=== PATIENT | female | born 1990 | race Native Hawaiian/Other Pacific Islander ===

== ENCOUNTER → 2018-08-21 | Outpatient (CLI) | payer OTHER ==
[~2018-08-21] MED LIST: ISOVUE-370 76% 100ML VIAL (Q9967) As Ordered ONE
--- NOTE | 2018-08-21 14:07 | REP ---
HYSTEROSALPINGOGRAM: HISTORY: 10 years of infertility. Hysterosalpingogram was performed in the usual fashion with contrast injected by the referring director public policy. Fluoroscopy time is 0.8 minutes. FINDINGS: A small normally shaped uterine cavity is opacified. The cervical canal is irregular and deviates to the left. There was apparently cervical canal stenosis encountered rendering cervical endometrial intubation difficulty. As a result, there was incomplete opacification of the fallopian tubes. The isthmic segments of the fallopian tubes are opacified on both sides and appear intact. The ampullary segment of the left fallopian tube is opacified and is unremarkable. No peritoneal spillage was documented on either side. IMPRESSION: Cervical canal irregularity/stenosis. Incomplete filling of the of the fallopian tubes bilaterally. Peritoneal spillage was not documented. Electronically Signed by Be English MD 08/21/2018 02:39 P
== END ==
LOC: M RADPRO 12:20
PROVIDERS: ATTEND Obstetrics & Gynecology
DX: N88.2 Stricture and stenosis of cervix uteri (principal); N97.9 Female infertility, unspecified
CPT/HCPCS: 58340; 74740; Q9967

== ENCOUNTER 2018-10-07 06:38 | Day surgery (SDC) | payer OTHER ==
[~2018-10-07] VITALS: Ht 165.1 cm; Wt 80.9 kg
[2018-10-07] MEDS ORDERED: LR 1,000 ML IV ONE (07:00)
[2018-10-07] MEDS ORDERED: DOXYCYCLINE HYCLATE 100 MG in D5W MINI-BAG PLUS 100 ML IV ONE (07:00)
[2018-10-07] MEDS ORDERED: PROPOFOL 200 MG/20 ML VIAL As Ordered ONE ×2 (07:05→07:19)
[2018-10-07 07:07] LABS: HEMATOCRIT 39.2 % (36.0-47.0); HEMOGLOBIN 13.3 g/dl (12.0-15.5)
[2018-10-07] MEDS ORDERED: METOCLOPRAMIDE INJ 10MG/2ML VIAL (J2765) As Ordered ONE (07:19)
[2018-10-07] MEDS ORDERED: ACETAMINOPHEN 1000MG 100ML IV BTL (OFIRMEV) (J0131 PER 10MG) As Ordered ONE (07:19)
[2018-10-07] MEDS ORDERED: KETOROLAC 60 MG/2 ML VIAL (J1885) As Ordered ONE (07:19)
[2018-10-07] MEDS ORDERED: LIDOCAINE 2% INJ 100 MG/5 ML SDV (FOR ANES.) As Ordered ONE (07:19)
[2018-10-07] MEDS ORDERED: ONDANSETRON 4MG/2ML VIAL (J2405) As Ordered ONE (07:19)
[2018-10-07] MEDS ORDERED: dexameTHASONE 4 MG/ML 1ML VIAL (J1100) As Ordered ONE (07:19)
[2018-10-07] MEDS ORDERED: MIDAZOLAM INJ 2 MG/2 ML VIAL (J2250) As Ordered ONE (07:20)
[2018-10-07] MEDS ORDERED: fentaNYL 100 MCG/2 ML INJECTION (J3010) As Ordered ONE ×2 (07:20→09:27)
[2018-10-07 07:27] LABS: HCG, SERUM QUALITATIVE NEGATIVE (NEGATIVE)
[2018-10-07] MEDS ORDERED: ROCURONIUM BROMIDE 50 MG/5 ML VIAL As Ordered ONE (08:09)
[2018-10-07] MEDS ORDERED: METHYLENE BLUE 0.5% (5MG/ML) 10 ML AMP (PROVAYBLUE)(Q9968 PER 1MG) As Ordered ONE (08:34)
[2018-10-07] MEDS ORDERED: BUPIVACAINE HCL 0.25% 30 ML VIAL As Ordered ONE (08:34)
[2018-10-07] MEDS ORDERED: SUGAMMADEX SODIUM 500 MG/5 ML VIAL (BRIDION) As Ordered ONE (10:08)
[2018-10-07] MEDS ORDERED: ONDANSETRON 4MG/2ML VIAL (J2405) IV PRN (11:00)
[2018-10-07] MEDS ORDERED: PERCOCET 5MG/325MG TAB PO PRN (11:00)
[2018-10-07] MEDS ORDERED: fentaNYL 100 MCG/2 ML INJECTION (J3010) IV PRN (11:00)
[2018-10-07 14:00] VITALS: BP 119/71
--- NOTE | 2018-10-07 16:10 | RO ---
DATE OF OPERATION: 10/07/2018 SURGEON: Marilu Morales MD EDUCATION ADVISER: Lakhwinder Durant MD CLINICAL SERVICE: Gynecology INDICATIONS FOR OPERATION: Ebonie is a 28-year-old, (G) 1, who has a history of infertility for approximately 10 years. She also has a history of Chlamydia. In the workup for infertility, we performed an HSG (hysterosalpingogram) and it showed no evidence of tubal patency. Therefore, she was referred for chromopertubation procedure, which she was counseled on in the office and desired to proceed. PREOPERATIVE DIAGNOSIS: Infertility with history of Chlamydia. 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 MATERIAL FORWARDED TO THE LAB: None. DESCRIPTION OF FINDINGS: Laparoscopic findings included a normal appearing uterus, ovaries, appendix, liver edge. Bilateral fallopian tubes appeared clubbed and the left fallopian tube had a small adhesion to the left ovary. Otherwise, there was no evidence of any endometriosis in the pelvis. Posterior cul-de-sac was normal. INFECTION CLASSIFICATION: 2 ESTIMATED BLOOD LOSS: 10 mL. URINE OUTPUT: 700 mL. IV fluids: 1500 mL of lactated Ringer's. OPERATION PERFORMED: Diagnostic laparoscopy with chromopertubation. DESCRIPTION OF OPERATION: After obtaining informed consent, Ebonie was taken to the operating room. General endotracheal anesthesia was established and she was placed into low lithotomy position. Exam was performed. The patient was prepped and draped in usual sterile fashion. She was placed in Trendelenburg position. Lowry catheter was placed. Delaplaine speculum was placed in the vagina and visualization of the cervix was obtained. Anterior lip of the cervix was grasped with a single-tooth tenaculum. Cervix was sequentially dilated using Hanks dilators. Uterus sounded to [address] attempted to [address] a YVONNE manipulator into the uterus, but I had great difficulty. So, we exchanged the YVONNE for an acorn uterine manipulator. The tenaculum was then removed. Site hemostasis observed and the bivalve speculum was removed. The patient was taken out of Trendelenburg position. Notably, she received 100 mg of IV doxycycline for having a history of Chlamydia in the past. A 5 mm incision was made in the infraumbilical fold beneath the subcutaneous tissue after anesthetizing with 0.25% Marcaine. Lower abdominal wall was manually grabbed and lifted up with aid of towel clamps and an Optiview trocar was placed at a 90 degree angle. Laparoscope was advanced through the port and intra-abdominal placement was confirmed. No injury was noted below the point of entry. Continuous low carbon dioxide began to establish a pneumoperitoneum at 15 mmHg pressure. At that point, we started to our abdominal survey and then placed one more trocar in the right lower quadrant. Using transillumination. we made a 5 mm incision after anesthetizing with 0.25% Marcaine and a 5 mm trocar was placed under direct visualization. We then performed more of a thorough pelvic and abdominal survey. Again, liver edge appeared normal as well as appendix. Uterus itself and ovaries were overall normal appearance. However, we could immediately tell that the fallopian tubes appeared clubbed and the left fallopian tube had a small adhesion to the left ovary. The anterior cul-de-sac and posterior cul-de-sac were normal in appearance. At that point, we pushed methylene blue solution through the uterine manipulator into the uterus and we noted a small amount of efflux through the left fallopian tube. However, the left fallopian tube still had abnormal appearance in general, but there was absolutely no dye that went through the right fallopian tube and it also was clubbed in appearance. At that point, we discontinued pushing the methylene blue dye and we removed the right lower quadrant ports under direct visualization, observed that area to be hemostatic. Pneumoperitoneum was released prior to removal of the umbilical port. Incisions were approximated with #4-0 Monocryl and Dermabond. All instruments were removed from the vagina. The patient was returned to the supine position. All counts were correct times two. The patient tolerated the procedure well and she was awakened from anesthesia and taken to the recovery room in stable condition.
== END 2018-10-07 14:10 | disposition home or self-care (01) ==
LOC: M SDC 06:38
PROVIDERS: ATTEND Obstetrics & Gynecology
DX: N97.1 Female infertility of tubal origin (principal); Z86.19 Personal history of other infectious and parasitic diseases; R07.9 Chest pain, unspecified
CPT/HCPCS: 36415; 49320; 58350; 84703; 85014; 85018; 86850; 86900; 86901; J0131; J1100; J1885; J2250; J2405; J2765; J3010; Q9968